=== PATIENT | male | born 1985 | race Caucasian/White ===

== ENCOUNTER 2022-01-06 06:40 | Emergency (ER) | payer OTHER ==
[~2022-01-06] VITALS: Ht 185.4 cm; Wt 90.7 kg
[2022-01-06 07:00] VITALS: BP 148/99
[2022-01-06] MEDS ORDERED: TYLENOL PO STA (07:11)
[2022-01-06 07:12] VITALS: BP 148/99
[2022-01-06] MEDS ORDERED: TYLENOL PO ONE (07:15)
[2022-01-06] MEDS ORDERED: NAPROXEN PO ONE ×2 (07:15→07:30)
--- NOTE | 2022-01-06 07:18 | ER.PDOC ---
General Chief Complaint: Extremities Stated Complaint: KNEE PAIN TRAVEL OUT OF US: No Time seen by MD: 07:05 Source: patient History of Present Illness Initial Comments 36 y/o male comes here with left knee pain fell yesterday, twisted his knee he is able to ambulate but its somewhat steady no bruise/swelling/hematoma no Rx No deformity Pain worse with ambulation moderate pain Past Medical History Medical History: no pertinent history Surgical History: hip LMP (females 10-50): N/A Not applicalbe Family History Significant Family History: no pertinent family hx Social History Smoking: non-smoker Alcohol Use: none Drug Use: none Reviewed Nursing Reviewed: Vital Signs, Abn. Noted, Nursing Assessment Review of Systems Constitutional: denies no symptoms reported, denies see HPI, denies chills, denies diaphoresis, denies fever, denies malaise, denies weakness, denies other EENTM: denies no symptoms reported, denies see HPI, denies eye pain, denies blurred vision, denies tearing, denies double vision, denies ear pain, denies ear discharge, denies nose pain, denies nose congestion, denies throat pain, denies throat swelling, denies mouth pain, denies mouth swelling, denies other Respiratory: denies no symptoms reported, denies see HPI, denies cough, denies orthopnea, denies shortness of breath, denies stridor, denies wheezing, denies other Cardiovascular: denies no symptoms reported, denies see HPI, denies chest pain, denies edema, denies palpitations, denies syncope, denies other Gastrointestinal: denies no symptoms reported, denies see HPI, denies abdominal pain, denies constipation, denies diarrhea, denies nausea, denies vomiting, d enies other Genitourinary: denies no symptoms reported, denies see HPI, denies discharge, denies dysuria, denies frequency, denies hematuria, denies pain, denies other Musculoskeletal: denies no symptoms reported, denies see HPI, denies back pain, denies gout; joint pain; denies joint swelling, denies muscle pain, denies muscle stiffness, denies neck pain, denies other Skin: denies no symptoms reported, denies see HPI, denies change in color, denies change in hair/nails, denies dryness, denies lesions, denies lumps, denies rash, denies other Psychiatric/Neurological: denies no symptoms reported, denies see HPI, denies anxiety, denies depressed, denies emotional problems, denies headache, denies numbness, denies paresthesia, denies pre-existing deficit, denies seizure, denies tingling, denies tremors, denies weakness, denies other Immunological/Allergic: denies no symptoms reported, denies see HPI, denies food allergy, denies grass allergy, denies mold allergy, denies pollen allergy, denies HIV/AIDS, denies transplant All Other Systems: Reviewed and Negative Physical Exam General Appearance: No Apparent Distress, WD/WN Extremities: Normal Range of Motion, Non-Tender, Normal Inspection, No Pedal Edema, No Calf Tenderness, Normal Capillary Refill Results/Orders Results/Orders Orders - MAAME MCGRATH MD Naproxen (Naproxen) (01/06/22 07:30) Acetaminophen (Tylenol) (01/06/22 07:11) Vital Signs Date Time Temp Pulse Resp B/P (MAP) Pulse Ox O2 Delivery O2 Flow Rate FiO2 01/06/22 07:00 76 20 01/06/22 07:00 76 18 100 Progress Progress Left knee: not unsteady nor lax No hematoma, bruise, deformity Points to pain on lateral aspect ER DEPART Departure Time of Disposition: 07:17 Disposition: 01 HOME / SELF CARE / HOMELESS Impression: Primary Impression: Left knee sprain Condition: Stable Referrals: PCP,UNKNOWN (PCP) PRIMARY CARE PROVIDER Duration or Time Spent with Pa: 10 min MAAME MCGRATH MD Jan 06, 2022 07:18
--- NOTE | 2022-01-06 07:24 | NUR ---
Discussed placing arturo wrap on patients injured knee. Patient refused stating "I will just go to [facility] to get a brace when I leave here."
--- NOTE | 2022-01-06 07:37 | NUR ---
Written and verbal discharge instructions provided. Verbalized understanding. Ambulated from ED without assistance and without difficulty. No s/s of acute distress noted. GCS-15
== END 2022-01-06 07:37 | disposition home or self-care (01) ==
LOC: ER 06:40
DX: S83.92XA Sprain of unspecified site of left knee, initial encounter (principal); W19.XXXA Unspecified fall, initial encounter; Y93.89 Activity, other specified; Y92.89 Other specified places as the place of occurrence of the external cause; Y99.8 Other external cause status
CPT/HCPCS: 99283; A9150